=== PATIENT | female | born 1970 | race Two or more races ===

== ENCOUNTER 2025-05-11 18:18 | Emergency (ER) | payer BC ==
[~2025-05-11] VITALS: Ht 170.2 cm; Wt 95.3 kg
[2025-05-11 18:58] LABS: PLATELET COUNT (AUTO) 208 K/uL (179-408); RED BLOOD CELL COUNT(AUTO) 4.18 MIL/uL (3.63-4.92); RED CELL DISTRIBUTION WIDTH 13.4 % (12.3-17.7); WHITE BLOOD COUNT (AUTO) 6.5 K/uL (3.8-11.8)
[2025-05-11 19:11] LABS: ASPARTATE AMINOTRANSFERASE 73.0 U/L (15-37); CREATININE 0.8 mg/dL (0.6-1.3); SODIUM SERUM 138.0 mmol/L (136-145); TOTAL PROTEIN, SERUM 7.7 g/dL (6.4-8.2); UREA NITROGEN, BLOOD 10.0 mg/dL (7-18)
[2025-05-11 19:18] LABS: *BILIRUBIN,URIN NEGATIVE (NEGATIVE); *BLOOD, URINE NEGATIVE (NEGATIVE); *CLARITY,URINE CLEAR (CLEAR); *COLOR,URINE YELLOW (YELLOW); *KETONES,URINE NEGATIVE (NEGATIVE); *PROTEIN,URINE NEGATIVE (NEGATIVE); *UROBILINOGEN,URINE 0.2 E.U./dl (NORMAL); LEUKOCYTE ESTERASE ,URINE NEGATIVE (NEGATIVE); NITRITE, URINE NEGATIVE (NEGATIVE); UGLUCOSE NEGATIVE (NEGATIVE)
[2025-05-11 22:43] VITALS: BP 145/70; TEMP 98; O2SAT 96
== END 2025-05-11 22:43 | disposition home or self-care (01) ==
LOC: ER 18:33
DX: R10.32 Left lower quadrant pain (principal); R10.2 Pelvic and perineal pain; R05.9 Cough, unspecified; R06.02 Shortness of breath; R07.89 Other chest pain; D25.9 Leiomyoma of uterus, unspecified; E04.1 Nontoxic single thyroid nodule; F41.9 Anxiety disorder, unspecified; F32.A Depression, unspecified; Z87.891 Personal history of nicotine dependence; Z20.822 Contact with and (suspected) exposure to COVID-19
CPT/HCPCS: 36415; 71045; 71250; 83690; 84484; 85025; A4606; A4663